=== PATIENT | female | born 1985 | race Hispanic/Latino ===

== ENCOUNTER 2020-10-05 21:59 | Emergency (ER) | payer SELFPAY | END 2020-10-05 22:04 | disposition left against medical advice (07) | LOC: ED 21:59 | DX: M79.89 Other specified soft tissue disorders (principal); Z53.21 Procedure and treatment not carried out due to patient leaving prior to being seen by health care provider ==

== ENCOUNTER 2020-12-12 12:48 | Emergency (ER) | payer SELFPAY ==
[2020-12-12 15:19] VITALS: BP 119/68
--- NOTE | 2020-12-12 15:23 | Emergency Department Report ---
ED Female HPI - General Chief complaint: Abdominal Pain Stated complaint: FEVER Time Seen by Provider: 12/12/20 15:19 Source: patient Mode of arrival: Ambulatory Limitations: No Limitations - History of Present Illness Initial comments: The patient was evaluated in the emergency department for symptoms described in the history of present illness. He/she was evaluated in the context of the global COVID-19 pandemic, which necessitated consideration that the patient might be at risk for infection with the virus that causes COVID-19. Institutional protocols and algorithms that pertain to the evaluation of patients at risk for COVID-19 are in a state of rapid change based on information released by regulatory bodies including the CDC and federal and state organizations. These policies and algorithms were followed during the patient's care in the emergency department. Please note that these policies, procedures and recommendations changed on a rapid basis. 35-year-old female presents to the emergency room complaining of pelvic pain, vaginal bleeding vaginal discharge and concern for STD. Patient states that this been going on for 3 days. She reports she has a Mirena and but it has been over 10 years. She states she has had a fever with a T-max of 100.5. She states she last took ibuprofen 2 hours prior to arrival. She does admit to having unprotected intercourse. She states that the pain is worse with standing and walking. She does admit that she has a cyst on her ovary. MD Complaint: vaginal bleeding, vaginal discharge, pelvic pain, possible STD Onset/Timin -: days(s) Location: suprapubic Radiation: non-radiating Severity: moderate Quality: cramping, sharp, stabbing Consistency: intermittent Worsens with: movement Are you Now?: No (Not sure has a Mirena 10 years) Associated Symptoms: vaginal discharge, vaginal bleeding, abdominal pain (Pelvic), fever/chills (Fever). denies: nausea/vomiting, headaches, loss of appetite, dysuria, hematuria, rash, seizure, shortness of breath, syncope, weakness, other - Related Data Sexually active: Yes Previous Rx's Medication Instructions Recorded Last Taken Type Azithromycin 2,000 gram PO ONCE #4 tablet 12/12/20 Unknown Rx Doxycycline Hyclate [Doxycycline 100 mg PO Q12HR 14 Days #28 tab 12/12/20 Unknown Rx Hyclate TAB] Fluconazole [Diflucan TAB] 200 mg PO QDAY #1 tablet 12/12/20 Unknown Rx Gemifloxacin Mesylate [Factive] 320 mg PO ONCE #1 tablet 12/12/20 Unknown Rx metroNIDAZOLE [Flagyl] 1 gram PO ONCE #2 tab 12/12/20 Unknown Rx Allergies Allergy/AdvReac Type Severity Reaction Status Date / Time cephalexin [From Keflex] Allergy Rash Verified 12/12/20 15:20 ED Review of Systems ROS: Stated complaint: FEVER Other details as noted in HPI Comment: All other systems reviewed and negative ED Past Medical Hx - Medications Home Medications: Home Medications Medication Instructions Recorded Confirmed Last Taken Type Azithromycin 2,000 gram PO ONCE #4 tablet 12/12/20 Unknown Rx Doxycycline Hyclate [Doxycycline 100 mg PO Q12HR 14 Days #28 tab 12/12/20 Unknown Rx Hyclate TAB] Fluconazole [Diflucan TAB] 200 mg PO QDAY #1 tablet 12/12/20 Unknown Rx Gemifloxacin Mesylate [Factive] 320 mg PO ONCE #1 tablet 12/12/20 Unknown Rx metroNIDAZOLE [Flagyl] 1 gram PO ONCE #2 tab 12/12/20 Unknown Rx ED Physical Exam - General Limitations: No Limitations General appearance: alert, in no apparent distress - Head Head exam: Present: atraumatic, normocephalic - Eye Eye exam: Present: normal appearance ED Course Vital Signs 12/12/20 15:17 Temperature 98.2 F Pulse Rate 85 Respiratory 16 Rate Blood Pressure 119/68 [Right] O2 Sat by Pulse 100 Oximetry ED Medical Decision Making - Medical Decision Making 35-year-old female presents to the emergency room complaining of pelvic pain, vaginal bleeding vaginal discharge and concern for STD. Patient states that this been going on for 3 days. She reports she has a Mirena and but it has been over 10 years. She states she has had a fever with a T-max of 100.5. She states she last took ibuprofen 2 hours prior to arrival. She does admit to having unprotected intercourse. She states that the pain is worse with standing and walking. She does admit that she has a cyst on her ovary. Urinalysis urine test wet prep and pelvic exam Urinalysis positive for 29 WBCs and large amount of leukoesterase, wet prep positive for moderate amount of trichomonas rare yeast. Patient will be treated for gonorrhea with gentamicin 240 mg IM, azithromycin 2 g doxycycline 100 mg p.o. twice daily for 14 days and Diflucan 200 mg p.o. x1. Patient is strongly encouraged to follow-up at the health department or [facility] for full STD evalua tion and treatment. Discussed with patient to refrain from intercourse for the next 2 weeks until her partner has been evaluated and treated. Critical care attestation.: If time is entered above; I have spent that time in minutes in the direct care of this critically ill patient, excluding procedure time. ED Disposition Clinical Impression: Trichomonas vaginalis (TV) infection, Exposure to STD Disposition: HOME / SELF CARE / HOMELESS Is pt being admited?: No Does the pt Need Aspirin: No Condition: Stable Instructions: Abdominal Pain (ED), Vaginitis, [id number], Trichomoniasis Additional Instructions: Please complete antibiotics as prescribed. Is very important you follow-up at the health department [facility] or your primary care provider to get a full STD evaluation. Your wet prep came back positive for trichomonas which is a sexually transmitted disease as well well labs with rare yeast. I am suspecting that you are positive for gonorrhea as well and you have been treated for that. Please refrain from intercourse for the next 2 weeks until your partner has been evaluated and treated as well. I strongly recommend using condoms. Prescriptions: Azithromycin 2,000 gram PO ONCE #4 tablet Fluconazole [Diflucan TAB] 200 mg PO QDAY #1 tablet Doxycycline Hyclate [Doxycycline Hyclate TAB] 100 mg PO Q12HR 14 Days #28 tab Gemifloxacin Mesylate [Factive] 320 mg PO ONCE #1 tablet metroNIDAZOLE [Flagyl] 1 gram PO ONCE #2 tab Referrals: PRIMARY CARE [Primary Care Provider] - 3-5 Days [facility] [Outside] - 3-5 Days [facility] [Outside] - 3-5 Days [facility] [Provider Group] - 3-5 Days [facility] [Provider Group] - 3-5 Days Forms: Work/School Release Form(ED)
[2020-12-12 17:09] LABS: Bacteria,Urine 1+ /HPF (Negative); Bilirubin,Urine NEG (Negative); Blood,Urine MOD (Negative); Color,Urine Yellow (Yellow); Mucus,Urine FEW /HPF; Protein,Urine <15 mg/dL mg/dL (Negative); Urobilinogen,Urine < 2.0 mg/dL (<2.0)
[2020-12-12 17:12] LABS: HCG Qualitative,Urine Negative (Negative)
[2020-12-12] MEDS ORDERED: GENTAMICIN 40 MG/ML VIAL 2 ML IM ONE ×2 (17:38→18:30)
== END 2020-12-12 18:48 | disposition home or self-care (01) ==
LOC: ED 12:48
DX: A59.01 Trichomonal vulvovaginitis (principal); Z20.2 Contact with and (suspected) exposure to infections with a predominantly sexual mode of transmission; Z88.1 Allergy status to other antibiotic agents; Z79.899 Other long term (current) drug therapy
CPT/HCPCS: 81001; 81025; 87086; 87210; 99283; J1580